=== PATIENT | female | born 1995 | race Caucasian/White ===

== ENCOUNTER 2019-07-06 22:14 | Emergency (ER) | payer OTHER ==
[~2019-07-06] VITALS: Ht 167.6 cm; Wt 59.1 kg
[2019-07-06 22:18] VITALS: TEMP 98
[2019-07-06] MEDS ORDERED: AMITRIPTYLINE H50 M1 PO (22:20)
[2019-07-06] MEDS ORDERED: DESYREL 100MG100 MG PO (22:20)
[2019-07-06] MEDS ORDERED: ABILIFY20 MG PO (22:20)
[2019-07-06] MEDS ORDERED: NEURONTIN100 MG/CAP PO (22:20)
[2019-07-07] MEDS ORDERED: ANECREAMREC2 RC (06:34)
[2019-07-07] MEDS ORDERED: COLACE 100100 MG/CAP PO (06:34)
[2019-07-07] MEDS ORDERED: MIRALAX PA17 GM/Dose PO (06:34)
[2019-07-07 07:24] VITALS: BP 120/80; PULSE 78
== END 2019-07-07 07:30 | disposition home or self-care (01) ==
LOC: COL.ER 22:14
DX: T18.5XXA Foreign body in anus and rectum, initial encounter (principal); F31.9 Bipolar disorder, unspecified; F17.290 Nicotine dependence, other tobacco product, uncomplicated
CPT/HCPCS: J2250; J2270; J2704; J3010; J7030

== ENCOUNTER 2019-10-31 19:25 | Emergency (ER) | payer OTHER ==
[~2019-10-31] VITALS: Ht 167.6 cm; Wt 59.1 kg
[~2019-10-31 19:25] MED LIST: ABILIFY20 MG PO; AMITRIPTYLINE H50 M1 PO; ANECREAMREC2 RC; COLACE 100100 MG/CAP PO; DESYREL 100MG100 MG PO; MIRALAX PA17 GM/Dose PO; NEURONTIN100 MG/CAP PO
[2019-10-31 19:43] VITALS: TEMP 98.5
[2019-10-31] MEDS ORDERED: TRI-SPRINTEC 281 TAB (20:20)
[2019-10-31] MEDS ORDERED: COGENTIN 1MG1 MG/TAB PO (20:20)
[2019-10-31] MEDS ORDERED: AMITRIPTYLINE H75 M1 PO (20:21)
[2019-10-31 20:30] LABS: COLLECTION METHOD CLEAN CATCH
[2019-10-31 20:39] LABS: PH 6 (5-8); SQUAMOUS EPITHELIAL 0-2 /hpf; URINE APPEARANCE Clear; URINE BACTERIA None Seen /hpf; URINE BILIRUBIN Negative (NEGATIVE); URINE BLOOD 1+ (NEGATIVE); URINE COLOR Yellow; URINE GLUCOSE Negative (NEGATIVE); URINE KETONE Negative (NEGATIVE); URINE LEUKOCYTE ESTERASE Negative (NEGATIVE); URINE NITRATE Negative (NEGATIVE); URINE PROTEIN(semi-quant) Negative (NEGATIVE); URINE RBC 0-2 /hpf; URINE UROBILINOGEN Negative (NEGATIVE)
[2019-10-31 22:30] VITALS: BP 137/94; PULSE 93
== END 2019-10-31 22:32 | disposition home or self-care (01) ==
LOC: COL.ER 19:25
PROVIDERS: Nurse Practitioner Primary Care
DX: R10.32 Left lower quadrant pain (principal); F31.9 Bipolar disorder, unspecified; Z79.899 Other long term (current) drug therapy
CPT/HCPCS: Q9967

== ENCOUNTER → 2019-11-01 | Outpatient (CLI) | payer OTHER ==
[~2019-11-01] MED LIST changes: +AMITRIPTYLINE H75 M1 PO; +COGENTIN 1MG1 MG/TAB PO; +TRI-SPRINTEC 281 TAB
== END ==
LOC: ZCOL.LAB 13:30
DX: R50.9 Fever, unspecified (principal); Z20.828 Contact with and (suspected) exposure to other viral communicable diseases

== ENCOUNTER 2020-01-23 13:03 | Emergency (ER) | payer OTHER ==
[~2020-01-23] VITALS: Ht 167.6 cm; Wt 59.1 kg
[2020-01-23 13:13] VITALS: BP 150/92; TEMP 98.9
[2020-01-23] MEDS ORDERED: BUSPAR10 MG PO (13:25)
[2020-01-23] MEDS ORDERED: ZOFRAN 4MG T4 MG/TAB PO (13:27)
[2020-01-23 14:12] LABS: COLLECTION METHOD CLEAN CATCH
[2020-01-23 14:18] LABS: BASO % 0.4 % (0.0-2.0); EOS # 0.1 (0.0-0.7); EOS % 1.1 % (0-4.0); GRAN # 5.8 (1.4-6.5); GRAN % 67.1 % (42.2-75.2); HEMOGLOBIN 14.1 g/dl (12.5-16.0); LYMPH # 2.2 (1.2-3.4); LYMPH % 25.7 % (20.0-51.0); MEAN CELL VOLUME 90 fl (80.0-100.0); MEAN CORPUSCULAR HEMOGLOBIN 30 pg (27.0-31.0); MEAN CORPUSCULAR HGB CONC 34 g/dl (33.0-37.0); MEAN PLATELET VOLUME 10.5 fl (7.4-10.4); MONO # 0.5 (0.1-0.6); MONO % 5.5 % (1.7-9.3); PLATELET COUNT 289 K/mm3 (130-400); RED BLOOD COUNT 4.68 M/mm3 (4.10-5.30); REDCELL DISTRIBUTION WIDTH-CV 11.4 % (11.5-14.5)
[2020-01-23 14:19] LABS: MUCOUS Present /lpf; PH 6 (5-8); URINE APPEARANCE Clear; URINE BACTERIA None Seen /hpf; URINE BILIRUBIN Negative (NEGATIVE); URINE BLOOD Negative (NEGATIVE); URINE COLOR Yellow; URINE GLUCOSE Negative (NEGATIVE); URINE KETONE Negative (NEGATIVE); URINE LEUKOCYTE ESTERASE Negative (NEGATIVE); URINE NITRATE Negative (NEGATIVE); URINE PROTEIN(semi-quant) Negative (NEGATIVE); URINE RBC 0-2 /hpf; URINE UROBILINOGEN Negative (NEGATIVE)
[2020-01-23 14:29] LABS: ALBUMIN 4.4 gm/dL (3.5-5.0); BILIRUBIN,TOTAL 0.4 mg/dL (0.0-1.0); C-REACTIVE PROTEIN 0.6 mg/dL (0.0-0.9); CALCIUM 9.2 mg/dL (8.4-10.2); CREATININE, serum 0.79 (0.52-1.25); POTASSIUM 4.2 mmol/L (3.4-5.0); TOTAL PROTEIN 7.6 gm/dL (6.4-8.2)
[2020-01-23 16:54] VITALS: PULSE 99
== END 2020-01-23 16:54 | disposition home or self-care (01) ==
LOC: COL.ER 13:03
PROVIDERS: Nurse Practitioner Primary Care
DX: R10.31 Right lower quadrant pain (principal); R10.32 Left lower quadrant pain; F17.210 Nicotine dependence, cigarettes, uncomplicated; Z32.02 Encounter for pregnancy test, result negative
CPT/HCPCS: J2405; J7030; Q9967